=== PATIENT | male | born 1995 | race Caucasian/White ===

== ENCOUNTER 2017-06-23 18:08 | Emergency (ER) | payer OTHER ==
[2017-06-23 18:19] VITALS: RESP 16; O2SAT 96
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
[2017-06-23 21:16] VITALS: BP 123/74; PULSE 74; TEMP 97.9
== END 2017-06-23 21:16 | disposition home or self-care (01) ==
DX: S52.122A Displaced fracture of head of left radius, initial encounter for closed fracture (principal); S63.502A Unspecified sprain of left wrist, initial encounter; V18.4XXA Pedal cycle driver injured in noncollision transport accident in traffic accident, initial encounter; Y92.410 Unspecified street and highway as the place of occurrence of the external cause; Y99.8 Other external cause status; Y93.55 Activity, bike riding
CPT/HCPCS: A4565